=== PATIENT | male | born 1950 | race Caucasian/White ===

== ENCOUNTER 2018-10-12 12:55 | Outpatient (CLI) | payer SELFPAY | END 2018-10-12 12:56 | disposition EMS.NT | LOC: EMS 12:55 | PROVIDERS: ATTEND Surgery | DX: S60.311A Abrasion of right thumb, initial encounter (principal); V43.53XA Car driver injured in collision with pick-up truck in traffic accident, initial encounter; Y92.413 State road as the place of occurrence of the external cause ==

== ENCOUNTER 2019-06-11 08:51 | Outpatient (CLI) | payer MEDICARE | END 2019-06-11 08:52 | disposition critical access hospital (66) | LOC: EMS 08:51 | PROVIDERS: ATTEND Surgery | DX: R53.1 Weakness (principal); R42 Dizziness and giddiness; R11.10 Vomiting, unspecified; R61 Generalized hyperhidrosis | CPT/HCPCS: A0425; A0427 ==

== ENCOUNTER 2019-11-25 13:09 | Emergency (ER) | payer MEDICARE ==
[2019-11-25 13:34] LABS: BILIRUBIN,URINE NEGATIVE (NEGATIVE); GLUCOSE, URINE (UA) NEGATIVE (NEGATIVE); KETONES,URINE (UA) NEGATIVE (NEGATIVE); LEUKOCYTE ESTERASE, URINE NEGATIVE (NEGATIVE); NITRITE,URINE NEGATIVE (NEGATIVE); OCCULT BLOOD,URINE LARGE (NEGATIVE); PH,URINE 6.5 PH (5.0-7.5); PROTEIN,URINE 100 mg/dL (NEGATIVE); UROBILINOGEN,URINE 0.2 (NORMAL) E.U./dL (NORMAL)
[2019-11-25 13:35] LABS: CLARITY,URINE CLOUDY (CLEAR)
[2019-11-25 13:41] LABS: BACTERIA,URINE Few /HPF (None Seen); RBC,URINE TNTC /HPF (0-5); SQUAMOUS EPITHELIAL CELL,UR FEW Squamous (<= Few)
[2019-11-25 14:21] LABS: BASOPHILS % (AUTO) 0.3 %; EOSINOPHILS % (AUTO) 0.3 %; HGB - HEMOGLOBIN 13.6 g/dL (14.0-18.0); LYMPHOCYTES # (AUTO) 1.3 10^3/uL (1.5-3.5); LYMPHOCYTES % (AUTO) 11.6 %; MEAN CORPUSCULAR HEMOGLOBIN 27.1 pg (27.0-31.0); MEAN CORPUSCULAR HGB CONC 31.6 g/dL (32.0-36.0); MEAN CORPUSCULAR VOLUME 85.7 fL (80.0-94.0); MEAN PLATELET VOLUME 11.1 fL (7.4-11.4); MONOCYTES # (AUTO) 0.8 10^3/uL (0.0-1.0); MONOCYTES % (AUTO) 6.9 %; NEUTROPHILS # (AUTO) 9.3 10^3/uL (1.5-6.6); NEUTROPHILS % (AUTO) 80.3 %; PLT - PLATELET COUNT 248 10^3/uL (130-450); RED BLOOD COUNT 5.02 10^6/uL (4.70-6.10); RED CELL DISTRIBUTION WIDTH 14.4 % (12.0-15.0); WHITE BLOOD COUNT 11.6 x10^3/uL (4.8-10.8)
--- NOTE | 2019-11-25 14:39 | ED Physician Documentation ---
History of Present Illness - Stated complaint Stated Complaint: MALE - Chief complaint Chief Complaint: Abd Pain - History obtained from History obtained from: Patient - History of Present Illness Timing: Yesterday Pain level max: 7 Pain level now: 3 - Additonal information Additional information: 69-year-old male presents to the emergency department with left-sided abdominal/flank pain. States he noted blood in his urine as well. No history of kidney stones. He states that he did have blood in the urine a few months ago as well, but seem to resolve on its own. He takes high blood pressure medication. No fevers. No vomiting. No diarrhea. No constipation. Nothing makes it better or worse. Review of Systems Constitutional: denies: Fever, Chills Nose: denies: Rhinorrhea / runny nose, Congestion GI: denies: Vomiting, Diarrhea : reports: Hematuria. denies: Dysuria, Frequency, Hesitancy Skin: denies: Rash Musculoskeletal: denies: Neck pain Neurologic: denies: Headache PD PAST MEDICAL HISTORY - Past Medical History Cardiovascular: Hypertension - Past Surgical History Past Surgical History: Yes Ortho: Other (hand surgery) - Present Medications Home Medications: Ambulatory Orders Medication Instructions Recorded Confirmed Meclizine [Antivert] 25 mg PO Q6H PRN #14 tablet 06/11/19 Ondansetron Odt [Zofran] 4 mg TL Q6H PRN #10 tablet 06/11/19 Cephalexin [Keflex] 500 mg PO Q6H #28 capsule 11/25/19 - Allergies Allergies/Adverse Reactions: Allergies Allergy/AdvReac Type Severity Reaction Status Date / Time No Known Drug Allergies Allergy Verified 11/25/19 13:11 - Social History Does the pt smoke?: Yes Smoking Status: Current every day smoker Does the pt drink ETOH?: Yes Does the pt have substance abuse?: No - Immunizations Immunizations are current?: Yes - POLST Patient has POLST: No PD ED PE NORMAL - Vitals Vital signs reviewed: Yes - General General: Alert and oriented X 3, No acute distress, Well developed/nourished - HEENT HEENT: Moist mucous membranes - Neck Neck: Supple, no meningeal sign - Cardiac Cardiac: RRR, Strong equal pulses - Respiratory Respiratory: No respiratory distress, Clear bilaterally - Abdomen Abdomen: Soft, Non tender, Non distended - Back Back: No CVA TTP, No spinal TTP - Derm Derm: Warm and dry - Extremities Extremities: No edema - Neuro Neuro: Alert and oriented X 3 - Psych Psych: Normal mood, Normal affect Results - Vitals Vitals: Vital Signs - 24 hr 11/25/19 11/25/19 11/25/19 13:11 13:46 16:12 Temperature 36.5 C 36.7 C 36.9 C Heart Rate 122 H 119 H 109 H Respiratory 16 18 20 Rate Blood Pressure 154/105 H 159/112 H 158/111 H O2 Saturation 96 97 98 Oxygen O2 Source Room air - Labs Labs: Laboratory Tests 11/25/19 11/25/19 11/25/19 13:20 14:00 14:00 WBC 11.6 H RBC 5.02 Hgb 13.6 L Hct 43.0 MCV 85.7 MCH 27.1 MCHC 31.6 L RDW 14.4 Plt Count 248 MPV 11.1 Neut # (Auto) 9.3 H Lymph # (Auto) 1.3 L Richardson # (Auto) 0.8 Eos # (Auto) 0.0 Baso # (Auto) 0.0 Absolute Nucleated RBC 0.00 Nucleated RBC % 0.0 Sodium 139 Potassium 3.8 Chloride 107 Carbon Dioxide 22 Anion Gap 10.0 BUN 27 H Creatinine 1.3 H Estimated GFR (MDRD) 55 L Glucose 129 H Calcium 9.2 Total Bilirubin 0.7 AST 18 ALT 11 Alkaline Phosphatase 86 Total Protein 7.6 Albumin 4.2 Globulin 3.4 Albumin/Globulin Ratio 1.2 Lipase 31 Urine Color RED/BLOODY Urine Clarity CLOUDY Urine pH 6.5 Ur Specific [place] 1.020 Urine Protein 100 H Urine Glucose (UA) NEGATIVE Urine Ketones NEGATIVE Urine Occult Blood LARGE H Urine Nitrite NEGATIVE Urine Bilirubin NEGATIVE Urine Urobilinogen 0.2 (NORMAL) Ur Leukocyte Esterase NEGATIVE Urine RBC TNTC H Urine WBC 6-10 H Ur Squamous Epith Cells FEW Squamous Urine Bacteria Few Ur Microscopic Review INDICATED Urine Culture Comments INDICATED - Rads (name of study) CT abdomen pelvis Radiology: Prelim report reviewed, EMP read contemporaneously, See rad report PD MEDICAL DECISION MAKING - ED course Complexity details: reviewed results, re-evaluated patient, considered differential, d/w patient ED course: Patient with hematuria of unclear etiology. Recommend that he have a cystoscopy. He does have some bacteria in his urine, will treat as a UTI. He also appears to have a potential colon mass, recommend a colonoscopy for this. A copy of his CT scan report was given to him for follow-up. No ureteral stone. Patient is well-appearing, nontoxic. Afebrile. Pain well controlled. Patient counseled regarding signs and symptoms for which I believe and urgent re-evaluation would be necessary. Patient with good understanding of and agreement to plan and is comfortable going home at this time This document was made in part using voice recognition software. While efforts are made to proofread this document, sound alike and grammatical errors may occur. Departure - Departure Disposition: Home, Self Care Clinical Impression: Hematuria Qualifiers: Hematuria type: unspecified type Qualified Code(s): R31.9 - Hematuria, unspecified UTI (urinary tract infection) Qualifiers: Urinary tract infection type: acute cystitis Hematuria presence: with hematuria Qualified Code(s): N30.01 - Acute cystitis with hematuria Condition: Good Instructions: ED Hematuria Follow-Up: your,doctor in 1 week [Other] Be Wright DO [Provider Admit Priv/Credential] - Barney Flores MD [Provider Admit Priv/Credential] - Hunter Cunha MD [Provider Admit Priv/Credential] - Prescriptions: Cephalexin [Keflex] 500 mg PO Q6H #28 capsule Comments: Return if you worsen. You should follow-up with a urologist for a cystoscopy to ensure that there are no concerns with your bladder. You also appear to have a possible small mass in your colon, you need a colonoscopy for this. IMPRESSION: 1. There are two indeterminate liver nodules present in the right lobe of the liver. Additionally, there is a suspicious finding in the distal sigmoid colon. Additional workup is recommended including colonoscopy for a more complete evaluation. 2. No bowel obstruction, no perforation. 3. Prominent prostate gland. No hydronephrosis. 4. Diverticular changes in the sigmoid colon. No CT evidence for diverticulitis or abscess formation. 5. Bilateral L5 pars defects with anterolisthesis and moderate to severe bilateral foraminal stenosis at L5-S1. Discharge Date/Time: 11/25/19 16:14
[2019-11-25 14:40] LABS: ALBUMIN 4.2 g/dL (3.2-5.5); ALBUMIN/GLOBULIN RATIO 1.2 (1.0-2.2); BILIRUBIN,TOTAL 0.7 mg/dL (0.2-1.0); CALCIUM 9.2 mg/dL (8.5-10.3); CREATININE 1.3 mg/dL (0.6-1.2); TOTAL PROTEIN 7.6 g/dL (6.7-8.2)
[2019-11-25] MEDS: SODIUM CHLORIDE 0.9% 1,000 ML IV ONE (14:41)
[2019-11-25] MEDS: KETOROLAC 30 MG/ML VIAL IVP STA (14:41)
[2019-11-25] MEDS: IOVERSOL 320 100 ML VIAL IVP ONE (14:59)
[2019-11-25] MEDS ORDERED: IOVERSOL 320 100 ML VIAL IVP ONE (15:02)
--- NOTE | 2019-11-25 15:23 | CT Report ---
Reason: L sided abd pain Procedure Date: 11/25/2019 Accession Number: [id number] / [id number] Procedure: CT - Abdomen/Pelvis W CPT Code: Final Report FULL RESULT: EXAM: CT ABDOMEN AND PELVIS EXAM DATE: 11/25/2019 02:59 PM. CLINICAL HISTORY: Left-sided abdominal pain. COMPARISONS: None. TECHNIQUE: Routine helical CT imaging was performed through the abdomen and pelvis. IV contrast: Optiray 320 100 mL. Enteric contrast: No. Reconstructions: Coronal and sagittal. In accordance with CT protocol optimization, one or more of the following dose reduction techniques were utilized for this exam: automated exposure control, adjustment of mA and/or KV based on patient size, or use of iterative reconstructive technique. FINDINGS: Lung Bases: Some dependent density in both lung bases. Liver: In the right lobe of the liver at the junction of segments VII and VIII, there is an irregular margined nodule measuring 3.1 x 1.7 cm transversely, extending for a cephalocaudal distance of 1.4 cm. Less distinct nodule also seen at the posterior aspect of segment VII measures about 1.4 cm. Series 3 image 20. Benign cyst seen in segment Kelly measuring 1.3 cm. No intrahepatic bile duct distention. Gallbladder/Bile Ducts: Unremarkable. Spleen: Normal. Pancreas: Normal. Adrenal Glands: Normal. Kidneys: Normal. No masses or hydronephrosis. Peritoneal Cavity/Bowel: No free air, no free fluid. In the low sigmoid colon, there is a mass present that does show a small amount of enhancement. This degree of enhancement is atypical for bowel contents. This area of concern is about 3.8 cm in diameter on series 3 image 67. More proximally, a few scattered diverticular changes are present without diverticulitis or abscess formation. The appendix is well visualized and normal. Pelvic Organs: Prostate gland is quite prominent. No hydronephrosis is seen. Vasculature: No aneurysms or other significant abnormality. Bones: Bilateral L5 pars defects are present, 9 mm of anterolisthesis, a broad-based disk bulge and moderate to severe bilateral foraminal narrowing. Other: None. IMPRESSION: 1. There are two indeterminate liver nodules present in the right lobe of the liver. Additionally, there is a suspicious finding in the distal sigmoid colon. Additional workup is recommended including colonoscopy for a more complete evaluation. 2. No bowel obstruction, no perforation. 3. Prominent prostate gland. No hydronephrosis. 4. Diverticular changes in the sigmoid colon. No CT evidence for diverticulitis or abscess formation. 5. Bilateral L5 pars defects with anterolisthesis and moderate to severe bilateral foraminal stenosis at L5-S1. RADIA
[2019-11-25 16:13] VITALS: BP 158/111
== END 2019-11-25 16:14 | disposition home or self-care (01) ==
LOC: ED 13:09
DX: N30.01 Acute cystitis with hematuria (principal); R93.3 Abnormal findings on diagnostic imaging of other parts of digestive tract; K57.30 Diverticulosis of large intestine without perforation or abscess without bleeding; I10 Essential (primary) hypertension; F17.200 Nicotine dependence, unspecified, uncomplicated; Z79.899 Other long term (current) drug therapy
CPT/HCPCS: 36415; 74177; 80053; 81001; 81003; 83690; 85025; 87086; 96361; 96374; 99284

== ENCOUNTER 2019-11-30 11:15 | Emergency (ER) | payer MEDICARE ==
[2019-11-30 11:46] LABS: BASOPHILS # (AUTO) 0.1 10^3/uL (0.0-0.1); BASOPHILS % (AUTO) 0.7 %; EOSINOPHILS # (AUTO) 0.2 10^3/uL (0.0-0.7); EOSINOPHILS % (AUTO) 1.4 %; LYMPHOCYTES # (AUTO) 1.6 10^3/uL (1.5-3.5); LYMPHOCYTES % (AUTO) 13.7 %; MEAN CORPUSCULAR HEMOGLOBIN 27.3 pg (27.0-31.0); MEAN CORPUSCULAR HGB CONC 31.1 g/dL (32.0-36.0); MEAN CORPUSCULAR VOLUME 87.7 fL (80.0-94.0); MEAN PLATELET VOLUME 11.1 fL (7.4-11.4); MONOCYTES # (AUTO) 0.8 10^3/uL (0.0-1.0); MONOCYTES % (AUTO) 6.8 %; NEUTROPHILS # (AUTO) 8.7 10^3/uL (1.5-6.6); NEUTROPHILS % (AUTO) 76.7 %; PLT - PLATELET COUNT 254 10^3/uL (130-450); RED CELL DISTRIBUTION WIDTH 14.7 % (12.0-15.0); WHITE BLOOD COUNT 11.3 x10^3/uL (4.8-10.8)
[2019-11-30 11:59] LABS: ALBUMIN 3.8 g/dL (3.2-5.5); ALBUMIN/GLOBULIN RATIO 1.2 (1.0-2.2); BILIRUBIN,TOTAL 0.6 mg/dL (0.2-1.0); CALCIUM 9.2 mg/dL (8.5-10.3); CREATININE 1.4 mg/dL (0.6-1.2)
--- NOTE | 2019-11-30 12:17 | XRAY Report ---
Reason: shortness of breath Procedure Date: 11/30/2019 Accession Number: [id number] / [id number] Procedure: XR - Chest 2 View X-Ray CPT Code: 35937 Final Report FULL RESULT: EXAM: CHEST RADIOGRAPHY EXAM DATE: 11/30/2019 11:49 AM. CLINICAL HISTORY: Shortness of breath. COMPARISON: ABDOMEN/PELVIS W/ 11/25/2019 2:55 PM. TECHNIQUE: 2 views. FINDINGS: Lungs/Pleura: Increased lung markings. Some William B-lines. Small bibasilar opacities. No effusions. Mediastinum: Stable Other: None. IMPRESSION: 1. Obstructive airways disease. 2. Small bibasilar opacities may represent atelectasis or scarring. 3. Questionable interstitial edema RADIA
--- NOTE | 2019-11-30 14:25 | ED Physician Documentation ---
PD HPI DYSPNEA - Stated complaint Stated Complaint: SOA - Chief complaint Chief Complaint: Resp - History obtained from History obtained from: Patient - History of Present Illness Timing - onset: Other (69-year-old gentleman with mitral valve prolapse was seen a few days ago for an apparent UTI and put on Keflex. That caused his colon to spasm he says, he has been constipated and then started to have bright red blood per rectum with rectal pain consistent with prior episode of a rectal tear. Subsequent to that starting about a day and a half ago he has been having some shortness of breath especially with exertion not associated with chest pain. He does have a mild cough. No pedal edema or calf pain.) Review of Systems Constitutional: denies: Fever, Myalgias, Fatigue Nose: denies: Rhinorrhea / runny nose, Congestion Throat: denies: Sore throat Cardiac: denies: Chest pain / pressure, Palpitations, Pedal edema, Calf pain Respiratory: reports: Dyspnea, Cough. denies: Hemoptysis, Wheezing GI: reports: Constipation, Bloody / black stool. denies: Abdominal Pain, Nausea, Vomiting Musculoskeletal: reports: Back pain (chronic). denies: Neck pain PD PAST MEDICAL HISTORY - Past Medical History Cardiovascular: Hypertension - Past Surgical History Past Surgical History: Yes Ortho: Other (hand surgery) - Present Medications Home Medications: Ambulatory Orders Medication Instructions Recorded Confirmed Meclizine [Antivert] 25 mg PO Q6H PRN #14 tablet 06/11/19 Ondansetron Odt [Zofran] 4 mg TL Q6H PRN #10 tablet 06/11/19 Cephalexin [Keflex] 500 mg PO Q6H #28 capsule 11/25/19 Docusate Sodium 250Mg Capsule 250 mg PO DAILY #30 capsule 11/30/19 [Colace 250Mg Capsule] - Allergies Allergies/Adverse Reactions: Allergies Allergy/AdvReac Type Severity Reaction Status Date / Time No Known Drug Allergies Allergy Verified 11/30/19 16:11 - Social History Does the pt smoke?: Yes Smoking Status: Current every day smoker Does the pt drink ETOH?: Yes Does the pt have substance abuse?: No - Immunizations Immunizations are current?: Yes - POLST Patient has POLST: No PD ED PE NORMAL - Vitals Vital signs reviewed: Yes - General General: Alert and oriented X 3, No acute distress - HEENT HEENT: PERRL, EOMI - Neck Neck: Supple, no meningeal sign, No bony TTP - Cardiac Cardiac: RRR (With frequent extrasystoles; Corresponding to PVCs on the monito r), No murmur - Respiratory Respiratory: No respiratory distress, Other (Rhonchi at both bases, nonlabored) - Abdomen Abdomen: Normal bowel sounds, Soft, Non tender - Rectal Rectal: Other (Multiple nonthrombosed hemorrhoids with sequela of recent active bleeding, no thrombosis or active bleeding.) - Back Back: No CVA TTP, No spinal TTP - Derm Derm: Normal color, Warm and dry - Extremities Extremities: No edema, No calf tenderness / cord Results - Vitals Vitals: Vital Signs - 24 hr 11/30/19 11/30/19 11/30/19 11:19 13:23 15:29 Temperature 36.1 C L 36.6 C Heart Rate 100 94 108 H Respiratory 18 20 18 Rate Blood Pressure 154/96 H 147/101 H 150/103 H O2 Saturation 99 97 98 Oxygen O2 Source Room air - EKG (time done) 1435 Rate: Rate (enter#) (100) Rhythm: Sinus tachycardia Jud: LAD QRS: LVH Ischemia: Non specific changes Computer interpretation: Agree with computer - Labs Labs: Laboratory Tests 11/30/19 11/30/19 11/30/19 11:43 11:43 11:43 WBC 11.3 H RBC 4.40 L Hgb 12.0 L Hct 38.6 L MCV 87.7 MCH 27.3 MCHC 31.1 L RDW 14.7 Plt Count 254 MPV 11.1 Neut # (Auto) 8.7 H Lymph # (Auto) 1.6 [place] # (Auto) 0.8 Eos # (Auto) 0.2 Baso # (Auto) 0.1 Absolute Nucleated RBC 0.00 Nucleated RBC % 0.0 Sodium 143 Potassium 4.2 Chloride 112 H Carbon Dioxide 23 Anion Gap 8.0 BUN 35 H Creatinine 1.4 H Estimated GFR (MDRD) 50 L Glucose 113 H Calcium 9.2 Total Bilirubin 0.6 AST 28 ALT 41 Alkaline Phosphatase 79 Troponin I High Sens 384.9 H* B-Natriuretic Peptide Total Protein 7.0 Albumin 3.8 Globulin 3.2 Albumin/Globulin Ratio 1.2 Lipase 31 Urine Color Urine Clarity Urine pH Ur Specific [place] Urine Protein Urine Glucose (UA) Urine Ketones Urine Occult Blood Urine Nitrite Urine Bilirubin Urine Urobilinogen Ur Leukocyte Esterase Urine RBC Urine WBC Ur Squamous Epith Cells Urine Bacteria Ur Microscopic Review Urine Culture Comments 11/30/19 11/30/19 11:43 14:34 WBC RBC Hgb Hct MCV MCH MCHC RDW Plt Count MPV Neut # (Auto) Lymph # (Auto) [place] # (Auto) Eos # (Auto) Baso # (Auto) Absolute Nucleated RBC Nucleated RBC % Sodium Potassium Chloride Carbon Dioxide Anion Gap BUN Creatinine Estimated GFR (MDRD) Glucose Calcium Total Bilirubin AST ALT Alkaline Phosphatase Troponin I High Sens B-Natriuretic Peptide 936 H Total Protein Albumin Globulin Albumin/Globulin Ratio Lipase Urine Color YELLOW Urine Clarity CLEAR Urine pH 6.0 Ur Specific [place] 1.025 Urine Protein NEGATIVE Urine Glucose (UA) NEGATIVE Urine Ketones NEGATIVE Urine Occult Blood MODERATE H Urine Nitrite NEGATIVE Urine Bilirubin NEGATIVE Urine Urobilinogen 0.2 (NORMAL) Ur Leukocyte Esterase TRACE H Urine RBC 11-25 H Urine WBC 6-10 H Ur Squamous Epith Cells NONE SEEN Urine Bacteria Few Ur Microscopic Review INDICATED Urine Culture Comments INDICATED - Rads (name of study) 2v chest Radiology: EMP read contemporaneously (Struct of airways disease, small bibasilar opacities that may represent atelectasis or scarring, questionable interstitial infiltrate.) PD MEDICAL DECISION MAKING - ED course ED course: 69-year-old gentleman presents with shortness of breath, hemorrhoidal bleeding, constipation. He has persistent evidence of UTI and I recommended continuation of the antibiotics after review of the culture showing mixed yani. His blood work was otherwise unremarkable but given his symptoms and the borderline chest x-ray I added on a BNP and a troponin which the patient was unable to wait around for and he signed out AGAINST MEDICAL ADVICE after discussion of the risks and potential still on ruled out diagnoses which included myocardial infarction and congestive heart failure. I called him back shortly after he signed out AMA with the positive troponin result and he says he will come back. Departure - Departure Disposition: 07 Against Medical Advice Clinical Impression: Hemorrhoids, internal, with bleeding UTI (urinary tract infection) Qualifiers: Urinary tract infection type: acute cystitis Hematuria presence: without hematuria Qualified Code(s): N30.00 - Acute cystitis without hematuria Condition: Good Record reviewed to determine appropriate education?: Yes Instructions: ED Hematochezia Stable Prescriptions: Docusate Sodium 250Mg Capsule [Colace 250Mg Capsule] 250 mg PO DAILY #30 capsule Discharge Date/Time: 11/30/19 15:38
[2019-11-30 14:41] LABS: BILIRUBIN,URINE NEGATIVE (NEGATIVE); GLUCOSE, URINE (UA) NEGATIVE (NEGATIVE); KETONES,URINE (UA) NEGATIVE (NEGATIVE); LEUKOCYTE ESTERASE, URINE TRACE (NEGATIVE); NITRITE,URINE NEGATIVE (NEGATIVE); OCCULT BLOOD,URINE MODERATE (NEGATIVE); PROTEIN,URINE NEGATIVE (NEGATIVE); UROBILINOGEN,URINE 0.2 (NORMAL) E.U./dL (NORMAL)
[2019-11-30 14:44] LABS: CLARITY,URINE CLEAR (CLEAR)
[2019-11-30 14:56] LABS: BACTERIA,URINE Few /HPF (None Seen); SQUAMOUS EPITHELIAL CELL,UR NONE SEEN (<= Few)
[2019-11-30 15:30] VITALS: BP 150/103
== END 2019-11-30 15:38 | disposition left against medical advice (07) ==
LOC: ED 11:15
DX: K64.8 Other hemorrhoids (principal); N30.00 Acute cystitis without hematuria; R74.8 Abnormal levels of other serum enzymes; I49.3 Ventricular premature depolarization; I34.1 Nonrheumatic mitral (valve) prolapse; I10 Essential (primary) hypertension; F17.200 Nicotine dependence, unspecified, uncomplicated; Z53.20 Procedure and treatment not carried out because of patient's decision for unspecified reasons
CPT/HCPCS: 36415; 71046; 80053; 81001; 81003; 83690; 83880; 84484; 85025; 87086; 93005; 99284

== ENCOUNTER 2019-11-30 15:56 | Emergency (ER) | payer MEDICARE ==
[~2019-11-30 15:56] MED LIST: ASPIRIN CHEW 81 MG TABLET PO STA
[2019-11-30] MEDS ORDERED: METOPROLOL TARTRATE 50 MG TABLET PO STA (16:10)
[2019-11-30] MEDS ORDERED: METOPROLOL 5 MG/5 ML VIAL IVP STA (16:10)
[2019-11-30] MEDS ORDERED: HEPARIN 25000UNITS/500ML (D5W) 25,000 UNIT/500 ML BAG IV STA (16:10)
--- NOTE | 2019-11-30 16:13 | ED Physician Documentation ---
PD HPI DYSPNEA - Stated complaint Stated Complaint: DIZZY - Chief complaint Chief Complaint: Cardiac - History obtained from History obtained from: Patient - History of Present Illness Timing - onset: Other (69-year-old gentleman who I had seen earlier in the day and he signed out AMA before troponin and BNP were resulted. I did call them back because the troponin was over 300 and he came back. Again he has had exertional dyspnea for a few weeks. Recent diagnosis of UTI on Keflex with mixed yani in the culture. He also had bleeding hemorrhoids. He has not had any chest pain, just this exertional dyspnea and dizziness which were his main complaints.) Review of Systems Ten Systems: 10 systems reviewed and negative Constitutional: denies: Fever, Chills Ears: denies: Loss of hearing, Ear pain Nose: denies: Rhinorrhea / runny nose, Congestion Cardiac: denies: Chest pain / pressure, Palpitations, Pedal edema, Calf pain PD PAST MEDICAL HISTORY - Past Medical History Cardiovascular: Hypertension - Past Surgical History Past Surgical History: Yes Ortho: Other (hand surgery) - Present Medications Home Medications: Ambulatory Orders Medication Instructions Recorded Confirmed Meclizine [Antivert] 25 mg PO Q6H PRN #14 tablet 06/11/19 Ondansetron Odt [Zofran] 4 mg TL Q6H PRN #10 tablet 06/11/19 Cephalexin [Keflex] 500 mg PO Q6H #28 capsule 11/25/19 Docusate Sodium 250Mg Capsule 250 mg PO DAILY #30 capsule 11/30/19 [Colace 250Mg Capsule] - Allergies Allergies/Adverse Reactions: Allergies Allergy/AdvReac Type Severity Reaction Status Date / Time No Known Drug Allergies Allergy Verified 11/30/19 16:11 - Social History Does the pt smoke?: Yes Smoking Status: Current every day smoker Does the pt drink ETOH?: Yes Does the pt have substance abuse?: No - Family History Family history: reports: Non contributory - Immunizations Immunizations are current?: Yes - POLST Patient has POLST: No PD ED PE NORMAL - Vitals Vital signs reviewed: Yes - General General: Alert and oriented X 3, No acute distress - HEENT HEENT: PERRL, EOMI - Neck Neck: No bony TTP - Cardiac Cardiac: RRR, No murmur - Respiratory Respiratory: No respiratory distress, Other (rales both bases) - Abdomen Abdomen: Soft, Non tender - Back Back: No CVA TTP, No spinal TTP - Derm Derm: Normal color, Warm and dry - Extremities Extremities: No edema, No calf tenderness / cord - Neuro Neuro: Alert and oriented X 3, Normal speech Results - Vitals Vitals: Vital Signs - 24 hr 11/30/19 11/30/19 11/30/19 16:05 16:40 17:00 Temperature 36.5 C Heart Rate 110 H 106 H 86 Respiratory 19 25 H 11 L Rate Blood Pressure 147/103 H 143/70 H 145/89 H O2 Saturation 96 97 97 11/30/19 11/30/19 17:30 18:00 Temperature Heart Rate 82 87 Respiratory 20 29 H Rate Blood Pressure 134/95 H 117/85 H O2 Saturation 96 96 Oxygen O2 Source Room air - EKG (time done) 1607 Rate: Rate (enter#) (109) Rhythm: Sinus tachycardia, LAE [place]: LAD Intervals: Other (IVCD) QRS: LVH Ischemia: Non specific changes. No: ST elevation c/w ischemia, ST depression Computer interpretation: Agree with computer - Labs Labs: Laboratory Tests 11/30/19 11/30/19 11/30/19 16:15 16:15 16:15 WBC 11.8 H RBC 4.62 L Hgb 12.3 L Hct 39.9 L MCV 86.4 MCH 26.6 L MCHC 30.8 L RDW 14.7 Plt Count 268 MPV 10.7 Neut # (Auto) 9.3 H Lymph # (Auto) 1.6 [place] # (Auto) 0.7 Eos # (Auto) 0.1 Baso # (Auto) 0.1 Absolute Nucleated RBC 0.00 Nucleated RBC % 0.0 Sodium 142 Potassium 3.9 Chloride 109 Carbon Dioxide 21 Anion Gap 12.0 BUN 33 H Creatinine 1.4 H Estimated GFR (MDRD) 50 L Glucose 111 H Calcium 9.0 Troponin I High Sens 363.3 H* PD MEDICAL DECISION MAKING - ED course ED course: 69-year-old gentleman returns at my behest after he had left AMA and subsequently his troponin came back pretty elevated. His EKG has not changed. He still has no chest pain. I discussed the case with the shower enclosure installer here, Dr. Vega, given the lack of interventional capability here she recommended transfer to a higher level of care and he was accepted by Dr. Hamilton to [facility] at 4:45 PM. [place] were completed. He is stable for transport to a higher level of care for inpatient cardiology evaluation. - Critical Care Time(min): 40 Time Includes: Direct patient care, Review records, Reassess patient, Document care, Coordinate care, Medical consult Data interpretation: Labs, Pulse ox Procedures excluded from critical care time: EKG Departure - Departure Disposition: 02 Transfer Acute Care Hosp Clinical Impression: Non-STEMI (non-ST elevated myocardial infarction) Condition: Serious Discharge Date/Time: 11/30/19 18:25
[2019-11-30 16:20] LABS: BASOPHILS # (AUTO) 0.1 10^3/uL (0.0-0.1); BASOPHILS % (AUTO) 0.6 %; EOSINOPHILS # (AUTO) 0.1 10^3/uL (0.0-0.7); EOSINOPHILS % (AUTO) 0.7 %; HGB - HEMOGLOBIN 12.3 g/dL (14.0-18.0); LYMPHOCYTES # (AUTO) 1.6 10^3/uL (1.5-3.5); LYMPHOCYTES % (AUTO) 13.4 %; MEAN CORPUSCULAR HEMOGLOBIN 26.6 pg (27.0-31.0); MEAN CORPUSCULAR HGB CONC 30.8 g/dL (32.0-36.0); MEAN CORPUSCULAR VOLUME 86.4 fL (80.0-94.0); MEAN PLATELET VOLUME 10.7 fL (7.4-11.4); MONOCYTES # (AUTO) 0.7 10^3/uL (0.0-1.0); MONOCYTES % (AUTO) 5.6 %; NEUTROPHILS # (AUTO) 9.3 10^3/uL (1.5-6.6); NEUTROPHILS % (AUTO) 79.1 %; PLT - PLATELET COUNT 268 10^3/uL (130-450); RED BLOOD COUNT 4.62 10^6/uL (4.70-6.10); RED CELL DISTRIBUTION WIDTH 14.7 % (12.0-15.0); WHITE BLOOD COUNT 11.8 x10^3/uL (4.8-10.8)
[2019-11-30 16:30] LABS: CREATININE 1.4 mg/dL (0.6-1.2)
[2019-11-30] MEDS ORDERED: FUROSEMIDE 40 MG/4 ML VIAL IVP STA (17:29)
[2019-11-30] MEDS ORDERED: NITROGLYCERIN 2% PASTE TOP STA (17:29)
[2019-11-30 18:07] VITALS: BP 117/85
== END 2019-11-30 18:25 | disposition short-term general hospital (02) ==
LOC: ED 15:56
DX: I21.4 Non-ST elevation (NSTEMI) myocardial infarction (principal); I10 Essential (primary) hypertension; F17.200 Nicotine dependence, unspecified, uncomplicated; K64.8 Other hemorrhoids; N30.00 Acute cystitis without hematuria; I49.3 Ventricular premature depolarization; I34.1 Nonrheumatic mitral (valve) prolapse
CPT/HCPCS: 36415; 71046; 80048; 80053; 81001; 83690; 83880; 84484; 85025; 87086; 93005; 96374; 96375; 99284; 99285; 99291; A9270

== ENCOUNTER 2019-11-30 18:27 | Outpatient (CLI) | payer MEDICARE | END 2019-11-30 23:59 | disposition short-term general hospital (02) | LOC: EMS 18:27 | PROVIDERS: ATTEND Surgery | DX: I21.4 Non-ST elevation (NSTEMI) myocardial infarction (principal) | CPT/HCPCS: A0425; A0426 ==

== ENCOUNTER 2020-12-01 12:36 | Outpatient (CLI) | payer MEDICARE ==
[2020-12-01] MEDS ORDERED: IOVERSOL 320 50 ML VIAL PO ONE (14:40)
[2020-12-01] MEDS ORDERED: IOVERSOL 320 100 ML VIAL IVP ONE (14:40)
--- NOTE | 2020-12-01 15:37 | CT Report ---
PROCEDURE: Abdomen/Pelvis W INDICATIONS: HEMATURIA CONTRAST: IV CONTRAST: Optiray 320 ml: 100 PO CONTRAST: Optiray 320 ml50 TECHNIQUE: After the administration of oral and IV contrast, 5 mm thick sections acquired from the diaphragms to the symphysis. 5 mm thick coronal and sagittal reformats were acquired. For radiation dose reducti on, the following was used: automated exposure control, adjustment of mA and/or kV according to tommy ent size. COMPARISON: CT abdomen pelvis 11/25/2019 FINDINGS: Image quality: Excellent. ABDOMEN: Lung bases: Lung bases are clear. Heart size is normal. Solid organs: Liver and spleen are normal in size and enhancement. Hepatic cysts are unchanged. Gall bladder is unremarkable. Biliary system is non dilated. Pancreas enhances normally. No adrenal nodu les. Left asymmetric renal atrophy is present. Previous left hydronephrosis has resolved. Peritoneum and bowel: Bowel loops demonstrate normal wall thickness and caliber. No free fluid or a ir. Previous sigmoid mass is no longer visualized. Minimal diverticula are noted. Nodes and vessels: No retroperitoneal or mesenteric adenopathy by size criteria. Aorta and inferior vena cava are normal in size. Miscellaneous: No ventral hernias. PELVIS: Genitourinary: Bladder wall demonstrates diffuse thickening there is incomplete distention. The pros seaman gland is markedly enlarged. There is soft tissue density within the posterior inferior aspect of the bladder which appears to be at least partially contiguous with the enlarged prostate gland. This was present on prior exam. Miscellaneous: No inguinal hernias or adenopathy. Bones: No suspicious bony lesions. No vertebral body compression fractures. IMPRESSION: 1. Diffuse bladder wall thickening, possibly secondary to incomplete distention. However, if concern persists for hematuria or cystitis, further evaluation is recommended. 2. Markedly enlarged prostate gland with soft tissue extension towards the inferior inferior bladder felt to be likely prostate tissue, unchanged. Reviewed by: Joanne Wade MD on 12/01/2020 3:36 PM PST Approved by: Joanne Wade MD on 12/01/2020 3:36 PM PST Station ID: [id number]
== END 2020-12-01 12:37 | disposition home or self-care (01) ==
LOC: LAB 12:36
PROVIDERS: ATTEND Physician Assistant
DX: R31.9 Hematuria, unspecified (principal); N40.0 Benign prostatic hyperplasia without lower urinary tract symptoms
CPT/HCPCS: 74177; Q9967

== ENCOUNTER 2021-01-16 14:07 | Outpatient (CLI) | payer MEDICARE ==
[2021-01-16 14:55] LABS: BASOPHILS # (AUTO) 0.1 10^3/uL (0.0-0.1); BASOPHILS % (AUTO) 0.6 %; EOSINOPHILS # (AUTO) 0.1 10^3/uL (0.0-0.7); EOSINOPHILS % (AUTO) 1.2 %; HCT - HEMATOCRIT 47.4 % (42.0-52.0); HGB - HEMOGLOBIN 15.5 g/dL (14.0-18.0); LYMPHOCYTES % (AUTO) 21.1 %; MEAN CORPUSCULAR HEMOGLOBIN 28.3 pg (27.0-31.0); MEAN CORPUSCULAR HGB CONC 32.7 g/dL (32.0-36.0); MEAN CORPUSCULAR VOLUME 86.5 fL (80.0-94.0); MEAN PLATELET VOLUME 10.6 fL (7.4-11.4); MONOCYTES # (AUTO) 0.7 10^3/uL (0.0-1.0); MONOCYTES % (AUTO) 7.3 %; NEUTROPHILS # (AUTO) 6.4 10^3/uL (1.5-6.6); NEUTROPHILS % (AUTO) 69.2 %; PLT - PLATELET COUNT 212 10^3/uL (130-450); RED BLOOD COUNT 5.48 10^6/uL (4.70-6.10); RED CELL DISTRIBUTION WIDTH 14.6 % (12.0-15.0); WHITE BLOOD COUNT 9.3 x10^3/uL (4.8-10.8)
[2021-01-16 15:07] LABS: ALKALINE PHOSPHATASE 89 IU/L (42-121); ALT ALANINE AMINOTRANSFERASE 15 IU/L (10-60); AST ASPARTATE AMINOTRANSFERASE 16 IU/L (10-42); BILIRUBIN,TOTAL 0.8 mg/dL (0.2-1.0); BUN - BLOOD UREA NITROGEN 27 mg/dL (6-20); CARBON DIOXIDE - CO2 22 mmol/L (21-32); CHLORIDE 107 mmol/L (101-111); CHOL/HDL RATIO 7.4 (<5.0); CHOLESTEROL 258 mg/dL; CREATININE 1.1 mg/dL (0.6-1.2); GAMMA GLUTAMYL TRANSPEPTIDASE 14 IU/L (8-55); GFR - MDRD 66 (>89); GLUCOSE 105 mg/dL (70-100); HDL CHOLESTEROL 35 mg/dL; LDL CHOLESTEROL,CALCULATED 185 mg/dL; LDL/HDL RATIO 5.3 (<3.6); MAGNESIUM 1.9 mg/dL (1.7-2.8); POTASSIUM 4.3 mmol/L (3.5-5.0); SODIUM 139 mmol/L (135-145); TOTAL PROTEIN 7.9 g/dL (6.7-8.2); TRIGLYCERIDES 190 mg/dL; VLDL CHOLESTEROL 38 mg/dL
[2021-01-16 15:20] LABS: THYROID STIMULATING HORMONE 0.68 uIU/mL (0.34-5.60)
[2021-01-16 15:22] LABS: FREE T4 (FREE THYROXINE) 1.03 ng/dL (0.58-1.64)
[2021-01-16 15:23] LABS: FREE T3 3.2 pg/mL (2.5-3.9)
[2021-01-16 15:31] LABS: FOLATE 9.88 ng/mL (5.90 - >24.8)
[2021-01-16 15:51] LABS: CEA - CARCINOEMBRYONIC ANTIGEN 2.9 ng/mL
[2021-01-16 20:12] LABS: ESTIMATED AVERAGE GLUCOSE 114 mg/dL (70-100); HEMOGLOBIN A1c% 5.6 % (4.27-6.07)
[2021-01-21 13:23] LABS: BILIRUBIN,URINE NEGATIVE (NEGATIVE); GLUCOSE, URINE (UA) NEGATIVE (NEGATIVE); KETONES,URINE (UA) NEGATIVE (NEGATIVE); LEUKOCYTE ESTERASE, URINE NEGATIVE (NEGATIVE); NITRITE,URINE NEGATIVE (NEGATIVE); OCCULT BLOOD,URINE LARGE (NEGATIVE); PROTEIN,URINE TRACE mg/dL (NEGATIVE); UROBILINOGEN,URINE 0.2 (NORMAL) E.U./dL (NORMAL)
[2021-01-21 13:24] LABS: CLARITY,URINE CLEAR (CLEAR)
[2021-01-21 13:45] LABS: BACTERIA,URINE Rare /HPF (None Seen); SQUAMOUS EPITHELIAL CELL,UR NONE SEEN (<= Few); WBC,URINE 0-3 /HPF (0-3)
== END 2021-01-16 14:08 | disposition home or self-care (01) ==
LOC: LAB 14:07
PROVIDERS: ATTEND General Practice
DX: I70.90 Unspecified atherosclerosis (principal); E88.81 Metabolic syndrome and other insulin resistance; N40.0 Benign prostatic hyperplasia without lower urinary tract symptoms; D50.9 Iron deficiency anemia, unspecified; E29.1 Testicular hypofunction; K76.9 Liver disease, unspecified; E78.00 Pure hypercholesterolemia, unspecified
CPT/HCPCS: 36415; 80053; 80061; 81001; 81003; 82306; 82378; 82607; 82670; 82746; 82977; 83036; 83721; 83735; 83880; 84153; 84403; 84439; 84443; 84480; 84481; 85025

== ENCOUNTER 2021-11-27 15:47 | Outpatient (CLI) | payer MEDICARE ==
[2021-11-27] MEDS ORDERED: iohexoL-300 100 ML VIAL ONE (16:18)
[2021-11-27] MEDS ORDERED: iohexoL-300 100 ML VIAL IVP ONE (20:25)
--- NOTE | 2021-11-28 15:13 | CT Report ---
PROCEDURE: IVP INDICATIONS: GROSS HEMATURIA CONTRAST: IV CONTRAST: Isovue 300 ml: 140 PO CONTRAST: *NO PO CONTRAST TECHNIQUE: After the administration of oral and intravenous contrast, 5 mm thick sections acquired from the diap hragms to the symphysis. 5 mm thick coronal and sagittal reformats were acquired. For radiation dos e reduction, the following was used: automated exposure control, adjustment of mA and/or kV accordin g to patient size. COMPARISON: CT abdomen and pelvis with contrast, 12/01/2020 and 11/25/2019. FINDINGS: Image quality: Excellent. Lung bases: There is a 5 mm groundglass nodule in the right middle lobe. Bilateral subpleural scars a nd atelectasis at lung bases. Heart size is normal. Moderate coronary artery calcification. Urinary system: There is rhnq-ds-xpnigfmc left renal atrophy with left renal cortical thinning. There is xkcbmksw-pc-ultbdu left hydronephrosis and hydroureter with left ureter dilated to the level of r ight UVJ. Mild left perinephric stranding and left periureteral stranding. Right kidney is normal in size and enhancement. Contrast-filled right renal calyces are normal in mo rphology. Contrast filled portions of right ureter are normal in caliber. Bladder wall is thickened along the left lateral bladder wall and left bladder base. Markedly enlarge d prostate. Solid organs: Liver is normal in size. Mild hepatic steatosis. There are several indeterminate hypod ense nodules in liver, most likely hepatic cysts. Gallbladder normal. Biliary system is non dilated. Pancreas enhances normally. The spleen is sandhya l in size. No adrenal nodules. Peritoneum and bowel: Bowel loops demonstrate normal wall thickness and caliber. Mild diverticulosis without diverticulitis. No free fluid or air. Nodes and vessels: No retroperitoneal or mesenteric adenopathy by size criteria. Aorta and inferior vena cava are normal in size. Abdominal wall: No ventral hernias. Pelvis: No pathologic free pelvic fluid. No inguinal hernias or adenopathy. Bones: Grade 1 anterolisthesis of L5 on S1 secondary to bilateral pars defects. Degenerative disc an d facet disease in lumbar spine. No suspicious bony lesions. No vertebral body compression fractures . IMPRESSION: 1. There is kuuryxxu-qx-agjuve left hydronephrosis and hydroureter with obstruction at the left UVJ. There is bladder wall thickening along the left posterior lateral bladder wall. Cannot rule out uroep ithelial neoplasm. Wpep-pz-dbixmvqh left renal atrophy is present. Recommend urology consultation and cystoscopy for follow-up evaluation. 2. Prostate is enlarged extruding into the urinary bladder, which may contribute to left UVJ obstruct ion and possible bladder outlet obstruction. 3. Mild diverticulosis without diverticulitis. 4. Several indeterminate hepatic hypodensities, most likely hepatic cysts. Reviewed by: Tadeo Vee MD on 11/28/2021 3:12 PM PST Approved by: Tadeo Vee MD on 11/28/2021 3:12 PM PST Station ID: [id number]
== END 2021-11-27 15:48 | disposition home or self-care (01) ==
LOC: DI 15:47
PROVIDERS: ATTEND Physician Assistant Medical
DX: R31.0 Gross hematuria (principal); N13.2 Hydronephrosis with renal and ureteral calculous obstruction; N26.1 Atrophy of kidney (terminal); N40.0 Benign prostatic hyperplasia without lower urinary tract symptoms; K57.90 Diverticulosis of intestine, part unspecified, without perforation or abscess without bleeding; R93.2 Abnormal findings on diagnostic imaging of liver and biliary tract
CPT/HCPCS: 74178; Q9967

== ENCOUNTER 2021-12-09 12:44 | Emergency (ER) | payer MEDICARE ==
[2021-12-09 12:53] VITALS: BP 157/99
--- NOTE | 2021-12-09 13:09 | ED Physician Documentation ---
History of Present Illness - Stated complaint Stated Complaint: BLOOD & CLOTS IN URINE - Chief complaint Chief Complaint: Abd Pain - History obtained from History obtained from: Patient - History of Present Illness Timing: How many weeks ago (several) Pain level max: 6 Pain level now: 5 - Additonal information Additional information: 71-year-old male presents to the emergency department complaining of left flank pain. He states that he has had hematuria and urinating blood clots as well. He states that he had a CT scan 2 weeks ago ordered by his urologist and it showed a growth near the left ureter causing the hydronephrosis. He has a cystoscopy scheduled for December 24. He is here requesting pain medication. Review of Systems Constitutional: denies: Fever, Chills Throat: denies: Sore throat Cardiac: denies: Chest pain / pressure, Palpitations Respiratory: denies: Cough GI: denies: Vomiting, Diarrhea : reports: Hematuria. denies: Incontinent Skin: denies: Rash Musculoskeletal: denies: Neck pain, Back pain PD PAST MEDICAL HISTORY - Past Medical History Cardiovascular: Hypertension - Past Surgical History Past Surgical History: Yes Ortho: Other (hand surgery) - Present Medications Home Medications: Ambulatory Orders Medication Instructions Recorded Confirmed Meclizine [Antivert] 25 mg PO Q6H PRN #14 tablet 06/11/19 Ondansetron Odt [Zofran] 4 mg TL Q6H PRN #10 tablet 06/11/19 cephALEXin [Keflex] 500 mg PO Q6H #28 capsule 11/25/19 Docusate Sodium 250Mg Capsule 250 mg PO DAILY #30 capsule 11/30/19 [Colace 250Mg Capsule] HYDROcod/ACETAM 5/325 [Magnolia 5/325] 1 - 2 ea PO Q6H PRN #14 tablet 12/09/21 - Allergies Allergies/Adverse Reactions: Allergies Allergy/AdvReac Type Severity Reaction Status Date / Time No Known Drug Allergies Allergy Verified 12/09/21 12:49 - Social History Does the pt smoke?: Yes Smoking Status: Current every day smoker Does the pt drink ETOH?: Yes Does the pt have substance abuse?: No - Immunizations Immunizations are current?: Yes - POLST Patient has POLST: No PD ED PE NORMAL - Vitals Vital signs reviewed: Yes - General General: Alert and oriented X 3, No acute distress - HEENT HEENT: Moist mucous membranes - Respiratory Respiratory: No respiratory distress - Derm Derm: Warm and dry - Neuro Neuro: Alert and oriented X 3 - Psych Psych: Normal mood, Normal affect Results - Vitals Vitals: Vital Signs - 24 hr 12/09/21 12:50 Temperature 36.5 C Heart Rate 100 Respiratory 16 Rate Blood Pressure 157/99 H O2 Saturation 97 Oxygen O2 Source Room air PD MEDICAL DECISION MAKING - ED course Complexity details: reviewed results, re-evaluated patient, considered differential, d/w patient ED course: Patient with a known bladder mass that is awaiting cystoscopy. This is causing hydronephrosis and likely the hematuria. This is an ongoing issue for the patient. We will prescribe him pain medication for home. I did contact [facility] and they are unable to move his appointment up any sooner. I will give him the name of an alternative urologist as well if you would like to see if they can see him any sooner. Until that time, he can utilize the pain medication to help with the left flank pain that he is having from the hydronephrosis. I am prescribing a short course of short-acting opioid pain medication for this patient. I have reviewed the patients [facility] and no concerning findings were noted. I have discussed that the opioids are for short term therapy only, and will not be refilled from the ED. patient counseled regarding signs and symptoms for which I believe and urgent re-evaluation would be necessary. Patient with good understanding of and agreement to plan and is comfortable going home at this time This document was made in part using voice recognition software. While efforts are made to proofread this document, sound alike and grammatical errors may occur. Departure - Departure Disposition: Home, Self Care Clinical Impression: Bladder tumor Hematuria Qualifiers: Hematuria type: gross Qualified Code(s): R31.0 - Gross hematuria Hydronephrosis Qualifiers: Hydronephrosis type: unspecified Qualified Code(s): N13.30 - Unspecified hydronephrosis Condition: Good Instructions: ED Hematuria Follow-Up: [facility] [Provider Group] Himanshu Mcrae MD [Physician No Access] - Prescriptions: HYDROcod/ACETAM 5/325 [Magnolia 5/325] 1 - 2 ea PO Q6H PRN #14 tablet PRN Reason: Pain Comments: I did confirm with [facility] that they are unable to see you until December 24. They have no openings at this time. Dr. Mcrae is another urologist that you can contact to see if he can see you sooner. Your prescriptions were sent to [facility] in [place]. I am prescribing a short course of narcotic pain medication for you. These are potentially dangerous and addictive medications that should be used carefully. These medications may constipate you. Take an grhx-ade-imkfaor stool softener (docusate) twice daily with plenty of water while taking these medications. If you go 24 hours without a bowel movement, take wxrv-ztp-hkdjfnh miralax, per package instructions. Do not drink or drive while taking these medications. If you received narcotic or sedating medications while in the emergency department, do not drive for 24 hours. Store this medication in a safe, secure place and out of reach of children. It is a violation of federal law to give or sell this medication to another person or to use in a manner other than prescribed. The ED will not refill narcotic prescriptions, including prescriptions lost or stolen. To dispose of unwanted medications: 1. [facility] [address] in [place] has a medication drop box. They accept prescription medications (in pill form) Thursday through Thursday 9:00 a.m. to 5:00 p.m. 2. [facility] accepts prescription medications (in pill form only) for disposal year round. Call for more information. 3. Contact the [facility] for the next [facility] sponsored prescription drug collection event. , [phone], or [phone];
== END 2021-12-09 13:26 | disposition home or self-care (01) ==
LOC: ED 12:44
DX: D49.4 Neoplasm of unspecified behavior of bladder (principal); F17.200 Nicotine dependence, unspecified, uncomplicated
CPT/HCPCS: 99282; 99283

== ENCOUNTER 2022-01-14 11:07 | Emergency (ER) | payer MEDICARE ==
[2022-01-14 11:43] LABS: BASOPHILS # (AUTO) 0.1 10^3/uL (0.0-0.1); BASOPHILS % (AUTO) 0.4 %; EOSINOPHILS # (AUTO) 0.1 10^3/uL (0.0-0.7); EOSINOPHILS % (AUTO) 0.7 %; HCT - HEMATOCRIT 45.3 % (42.0-52.0); HGB - HEMOGLOBIN 15.4 g/dL (14.0-18.0); LYMPHOCYTES # (AUTO) 1.5 10^3/uL (1.5-3.5); LYMPHOCYTES % (AUTO) 8.1 %; MEAN CORPUSCULAR HEMOGLOBIN 30.4 pg (27.0-31.0); MEAN CORPUSCULAR VOLUME 89.5 fL (80.0-94.0); MEAN PLATELET VOLUME 9.9 fL (7.4-11.4); MONOCYTES # (AUTO) 1.4 10^3/uL (0.0-1.0); MONOCYTES % (AUTO) 7.6 %; NEUTROPHILS # (AUTO) 15.3 10^3/uL (1.5-6.6); NEUTROPHILS % (AUTO) 82.4 %; PLT - PLATELET COUNT 221 10^3/uL (130-450); RED BLOOD COUNT 5.06 10^6/uL (4.70-6.10); RED CELL DISTRIBUTION WIDTH 12.4 % (12.0-15.0); WHITE BLOOD COUNT 18.6 x10^3/uL (4.8-10.8)
[2022-01-14 11:56] LABS: ALBUMIN/GLOBULIN RATIO 1.1 (1.0-2.2); CALCIUM 8.7 mg/dL (8.5-10.3); CREATININE 1.9 mg/dL (0.6-1.2); POTASSIUM 4.1 mmol/L (3.5-5.0); TOTAL PROTEIN 7.5 g/dL (6.7-8.2)
--- NOTE | 2022-01-14 12:01 | ED Physician Documentation ---
PD HPI ABD PAIN - Stated complaint Stated Complaint: BACK PX - Chief complaint Chief Complaint: Abd Pain - Additional information Additional information: Patient is a 71-year-old male presenting to the emergency department with report of left-sided low back pain, bloody output from a left-sided nephrectomy tube as well as blood and clots in urination x2 days. Recently underwent nephrectomy tube placement for known left-sided bladder mass at [facility]. Was performed 01/01/2022. Reports was having bloody output which had resolved however resumed 2 days ago. Also reports difficulty with micturition and passage of blood and clots. States increasing pain but denies nausea or vomiting. Endorses for some constipation but denies diarrhea. Review of Systems Unable to obtain: Unresponsive Ten Systems: 10 systems reviewed and negative Constitutional: denies: Fever, Chills, Fatigue Eyes: denies: Loss of vision Ears: denies: Loss of hearing Nose: denies: Rhinorrhea / runny nose Throat: denies: Dental pain / toothache Cardiac: denies: Chest pain / pressure Respiratory: denies: Dyspnea GI: reports: Abdominal Pain, Constipation : reports: Unable to Void, Hematuria PD PAST MEDICAL HISTORY - Past Medical History Cardiovascular: Hypertension - Past Surgical History Past Surgical History: Yes Ortho: Other (hand surgery) - Present Medications Home Medications: Ambulatory Orders Medication Instructions Recorded Confirmed Aspirin [[place] Aspirin] 81 mg PO DAILY 01/14/22 01/14/22 Atorvastatin Calcium [Lipitor] 80 mg PO HS 01/14/22 01/14/22 Docusate Sodium 250Mg Capsule 250 mg PO BID PRN 01/14/22 01/14/22 [Colace 250Mg Capsule] Doxycycline Hyclate 100 mg PO BID #20 tab.sr 01/14/22 Ferrous Sulfate 325 mg PO DAILY 01/14/22 01/14/22 Finasteride [Proscar] 5 mg PO DAILY 01/14/22 01/14/22 HYDROcod/ACETAM 5/325 [Erin 5/325] 1 - 2 tablet PO Q6H PRN 01/14/22 01/14/22 Lisinopril [Zestril] 10 mg PO DAILY 01/14/22 01/14/22 Metoprolol Succinate [Toprol Xl] 25 mg PO BID 01/14/22 01/14/22 Nitroglycerin [Nitrostat] 0.4 mg SL [id number] PRN 01/14/22 01/14/22 Oxybutynin [Ditropan] 5 mg PO TID PRN 01/14/22 01/14/22 Tamsulosin [Flomax] 0.4 mg PO DAILY 01/14/22 01/14/22 - Allergies Allergies/Adverse Reactions: Allergies Allergy/AdvReac Type Severity Reaction Status Date / Time No Known Drug Allergies Allergy Verified 01/14/22 11:25 - Social History Does the pt smoke?: Yes Smoking Status: Current every day smoker Does the pt drink ETOH?: Yes Does the pt have substance abuse?: No - Immunizations Immunizations are current?: Yes - POLST Patient has POLST: No PD ED PE NORMAL - General General: Alert and oriented X 3 - HEENT HEENT: Atraumatic - Neck Neck: Supple, no meningeal sign - Cardiac Cardiac: RRR, No gallop - Respiratory Respiratory: No respiratory distress, Clear bilaterally - Abdomen Abdomen: Normal bowel sounds - Back Back: Other (Left-sided nephrectomy tube with grossly bloody output) - Neuro Neuro: Alert and oriented X 3, letterpress setter 2-12 intact, No motor deficit, No sensory deficit, Normal speech Results - Vitals Vitals: Vital Signs - 24 hr 01/14/22 01/14/22 01/14/22 11:19 14:06 16:00 Temperature 36.5 C 36.8 C Heart Rate 108 H 103 H 95 Respiratory 16 18 16 Rate Blood Pressure 138/81 H 136/96 H 149/94 H O2 Saturation 98 100 100 01/14/22 17:00 Temperature 36.7 C Heart Rate 99 Respiratory 18 Rate Blood Pressure 141/92 H O2 Saturation 99 Oxygen O2 Source Room air - Labs Labs: Laboratory Tests 01/14/22 01/14/22 01/14/22 11:37 11:37 12:31 WBC 18.6 H RBC 5.06 Hgb 15.4 Hct 45.3 MCV 89.5 MCH 30.4 MCHC 34.0 RDW 12.4 Plt Count 221 MPV 9.9 Neut # (Auto) 15.3 H Lymph # (Auto) 1.5 Brewster # (Auto) 1.4 H Eos # (Auto) 0.1 Baso # (Auto) 0.1 Absolute Nucleated RBC 0.00 Nucleated RBC % 0.0 APTT 30.2 Sodium 137 Potassium 4.1 Chloride 105 Carbon Dioxide 21 Anion Gap 11.0 BUN 37 H Creatinine 1.9 H Estimated GFR (MDRD) 35 L Glucose 119 H Calcium 8.7 Total Bilirubin 1.0 AST 12 ALT 13 Alkaline Phosphatase 91 Total Protein 7.5 Albumin 4.0 Globulin 3.5 Albumin/Globulin Ratio 1.1 Lipase 32 Urine Color Urine Clarity Urine pH Ur Specific Floyd Urine Protein Urine Glucose (UA) Urine Ketones Urine Occult Blood Urine Nitrite Urine Bilirubin Urine Urobilinogen Ur Leukocyte Esterase Urine RBC Urine WBC Ur Squamous Epith Cells Urine Bacteria Ur Microscopic Review Urine Culture Comments 01/14/22 14:04 WBC RBC Hgb Hct MCV MCH MCHC RDW Plt Count MPV Neut # (Auto) Lymph # (Auto) Brewster # (Auto) Eos # (Auto) Baso # (Auto) Absolute Nucleated RBC Nucleated RBC % APTT Sodium Potassium Chloride Carbon Dioxide Anion Gap BUN Creatinine Estimated GFR (MDRD) Glucose Calcium Total Bilirubin AST ALT Alkaline Phosphatase Total Protein Albumin Globulin Albumin/Globulin Ratio Lipase Urine Color RED/BLOODY Urine Clarity TURBID Urine pH Ur Specific Floyd Urine Protein Urine Glucose (UA) Urine Ketones Urine Occult Blood LARGE H Urine Nitrite Urine Bilirubin COLOR INTERFERENCE Urine Urobilinogen Ur Leukocyte Esterase MODERATE H Urine RBC TNTC H Urine WBC 11-25 H Ur Squamous Epith Cells NONE SEEN Urine Bacteria Rare Ur Microscopic Review INDICATED Urine Culture Comments INDICATED PD MEDICAL DECISION MAKING - ED course Complexity details: reviewed old records, reviewed results, d/w patient, d/w risk management consultant ED course: Patient is a 71-year-old male presenting to the emergency department with worsening left-sided flank pain and bloody output to a recently placed nephrostomy tube as well as some blood-tinged urine at home. Patient underwent nephrostomy tube and stent placement 01/01 at [facility] as well as transurethral resection of bladder tumors. Afebrile, hemodynamically stable on arrival to the emergency department. Given IV hydration and medication for pain control. Comprehensive labs obtained demonstrated a leukocytosis with bandemia as well as a stable chronic anemia. Additionally patient was noted to have a creatinine of 1.9. Most recent baseline from a few days ago was 1.45. CT imaging demonstrated Appropriately positioned nephrostomy tube, left-sided stent as well as improved hydronephrosis on the left and mild hydronephrosis on the right with fat stranding at the kidneys bilaterally as well as indications of cystitis and blood in the bladder. I consulted with Dr. La Hadley at [facility].All findings discussed. In consultation with Dr. Hadley will initiate oral antibiotics. Patient has prescription of pain Remaining from his previous hospitalization. Will discharge at this time for follow-up with urology. Follow-up appointment scheduled for 01/16. Patient given clear return precautions and follow-up instructions prior to discharge. - Consults Consults: Consulted (name) (Dr [facility]) Departure - Departure Disposition: 01 Home, Self Care Clinical Impression: Hematuria, Bladder cancer, Acute lower UTI, Leukocytosis Condition: Fair Follow-Up: LONA HADLEY MD [Physician No Access] - Prescriptions: Doxycycline Hyclate 100 mg PO BID #20 tab.sr Comments: Thank you for allowing us to care for you today at [facility]. In the emergency department today your evaluated for any possible life threatening injury or illness. You do have some indications of infection in your blood work and urine. I discussed your case with La Hadley, urology at [facility]. Would like you to begin a course of oral antibiotics. I had like you to fill the prescription for pain medication that was provided for you by [facility]. It is important that yo u drink plenty of fluids over the course the next few days. You have a follow- up appointment with Dr. Hadley in 2 days. Please keep this appointment. If it anytime you develop any new or worsening symptoms please not hesitate to return.
[2022-01-14] MEDS ORDERED: HYDROmorphone 0.5 MG/0.5 ML SYRINGE IM STA (12:18)
[2022-01-14] MEDS ORDERED: ONDANSETRON 4 MG/2 ML VIAL IVP STA (12:18)
[2022-01-14] MEDS ORDERED: HYDROmorphone 0.5 MG/0.5 ML SYRINGE IVP STA (12:21)
[2022-01-14] MEDS ORDERED: HYDROmorphone 1 MG/ML CARPUJECT IVP STA (13:46)
--- NOTE | 2022-01-14 13:59 | CT Report ---
PROCEDURE: Abdomen/Pelvis WO INDICATIONS: pain, hematuria, bleeding from neph tube plcd 01/01 TECHNIQUE: Noncontrast 5 mm thick sections acquired from the diaphragms to the symphysis. 5 mm coronal and sagi ttal reformats were then performed. For radiation dose reduction, the following was used: automated exposure control, adjustment of mA and/or kV according to patient size. COMPARISON: 11/27/2021, 12/01/2020. FINDINGS: Image quality: Excellent. ABDOMEN: Lung bases: Dependent atelectasis in posterior aspect of bilateral lung bases are seen. Heart size is enlarged, no pericardial effusion. Solid organs: Liver and spleen are normal in size. Well-circumscribed hypodensity in inferior right hepatic lobe adjacent to gallbladder fossa is again seen unchanged from prior studies and is consiste nt with a small hepatic cyst. Gallbladder it is within normal limits. Pancreas is normal in contou rs. No adrenal nodules. There is interval placement of left-sided percutaneous nephrostomy tube and left-sided ureteral stent . There is mild residual left-sided hydronephrosis and hydroureter with significant left periureteral fat stranding. There is interval development of mild right-sided hydronephrosis with moderate right perinephric fat stranding although no obstructing renal stone or ureteral stone is seen. Peritoneum and bowel: Unenhanced bowel loops demonstrate normal wall thickness and caliber. No free fluid or air. Appendix is visualized and is within normal limits. Postsurgical changes are noted in mid to distal sigmoid colon with intact surgical anastomosis. Nodes and vessels: No retroperitoneal or mesenteric adenopathy by size criteria. Aorta and inferior vena cava are normal in caliber. Miscellaneous: No ventral hernias. PELVIS: Genitourinary: Urinary bladder is distended with diffuse bladder wall thickening and hyperdense mater ial within bladder lumen suggestive of blood clots. Mildly enlarged prostate gland with mild mass eff ect on floor of urinary bladder is seen. Miscellaneous: No inguinal hernias or adenopathy. Bones: No suspicious bony lesions. No vertebral body compression fractures. IMPRESSION: 1. Hyperdense material within bladder lumen with diffuse bladder wall thickening suggestive of blood and blood clot within the bladder lumen and cystitis. Underlying bladder wall malignancy process jeffery ot be excluded. 2. Interval placement of left-sided percutaneous nephrostomy tube and left-sided ureteral stent with significant decrease in extent of left-sided hydronephrosis and hydroureter compared to previous stud y. Mild residual left-sided hydronephrosis or hydroureter with significant left perinephric fat stran ding. 3. Interval development of mild right-sided hydronephrosis and mild to moderate right perinephric fat stranding. Right ureter is normal in size. No gross obstructing stone is identified. 4. Bibasilar dependent atelectasis. Cardiomegaly. 5. Stable appearing hypodensity in inferior right hepatic lobe likely represent hepatic cyst. 6. No bowel obstruction or abnormal bowel wall thickening. No free fluid of free air. Normal appendix . Reviewed by: Johnny Morales MD on 01/14/2022 1:57 PM PST Approved by: Johnny Morales MD on 01/14/2022 1:57 PM PST Station ID: [id number]
[2022-01-14 14:22] LABS: LEUKOCYTE ESTERASE, URINE MODERATE (NEGATIVE); OCCULT BLOOD,URINE LARGE (NEGATIVE)
[2022-01-14 14:27] LABS: CLARITY,URINE TURBID (CLEAR)
[2022-01-14 14:29] LABS: BILIRUBIN,URINE COLOR INTERFERENCE (NEGATIVE)
[2022-01-14 14:31] LABS: BACTERIA,URINE Rare /HPF (None Seen); RBC,URINE TNTC /HPF (0-5); SQUAMOUS EPITHELIAL CELL,UR NONE SEEN (<= Few)
[2022-01-14] MEDS ORDERED: cefTRIAXone 1 GM in SODIUM CHLORIDE 0.9% MINIBAG 100 ML IV STA (14:43)
[2022-01-14 17:16] VITALS: BP 141/92
== END 2022-01-14 17:35 | disposition home or self-care (01) ==
LOC: ED 11:07
DX: T83.83XA Hemorrhage due to genitourinary prosthetic devices, implants and grafts, initial encounter (principal); Y83.9 Surgical procedure, unspecified as the cause of abnormal reaction of the patient, or of later complication, without mention of misadventure at the time of the procedure; I10 Essential (primary) hypertension; F17.200 Nicotine dependence, unspecified, uncomplicated; Z79.82 Long term (current) use of aspirin; D49.4 Neoplasm of unspecified behavior of bladder; N39.0 Urinary tract infection, site not specified; D72.829 Elevated white blood cell count, unspecified
CPT/HCPCS: 36415; 74176; 80053; 81001; 83690; 85025; 85730; 87040; 87086; 96365; 96375; 96376; 99283; 99284; J1170; 81003

== ENCOUNTER 2022-01-19 10:33 | Emergency (ER) | payer MEDICARE ==
--- NOTE | 2022-01-19 12:18 | ED Physician Documentation ---
PD HPI ABD PAIN - Stated complaint Stated Complaint: DRAIN REPLACEMENT - Chief complaint Chief Complaint: Abd Pain - History obtained from History obtained from: Patient - Additional information Additional information: He has bladder cancer, left-sided nephrostomy that is 10 days old. His dog knocked it out today. He was not given any advice on what to do if this happened and just came to the closest hospital. He does not know who his urologist is. He is in no pain. This would have happened around 10 AM, may be slightly earlier. Review of Systems Ten Systems: 10 systems reviewed and negative Constitutional: reports: Reviewed and negative Ears: reports: Reviewed and negative Nose: reports: Reviewed and negative Throat: reports: Reviewed and negative Cardiac: reports: Reviewed and negative PD PAST MEDICAL HISTORY - Past Medical History Past Medical History: Yes Cardiovascular: Hypertension Respiratory: None Neuro: None Endocrine/Autoimmune: None GI: Other : Other HEENT: None Psych: None Musculoskeletal: None Derm: None Other Past Medical History: bladder cancer - Past Surgical History Past Surgical History: Yes General: Bowel surgery Ortho: Other Cardiovascular: Coronary stent - Present Medications Home Medications: Ambulatory Orders Medication Instructions Recorded Confirmed Aspirin [[place] Aspirin] 81 mg PO DAILY 01/14/22 01/14/22 Atorvastatin Calcium [Lipitor] 80 mg PO HS 01/14/22 01/14/22 Docusate Sodium 250Mg Capsule 250 mg PO BID PRN 01/14/22 01/14/22 [Colace 250Mg Capsule] Doxycycline Hyclate 100 mg PO BID #20 tab.sr 01/14/22 Ferrous Sulfate 325 mg PO DAILY 01/14/22 01/14/22 Finasteride [Proscar] 5 mg PO DAILY 01/14/22 01/14/22 HYDROcod/ACETAM 5/325 [[place] 5/325] 1 - 2 tablet PO Q6H PRN 01/14/22 01/14/22 Lisinopril [Zestril] 10 mg PO DAILY 01/14/22 01/14/22 Metoprolol Succinate [Toprol Xl] 25 mg PO BID 01/14/22 01/14/22 Nitroglycerin [Nitrostat] 0.4 mg SL [id number] PRN 01/14/22 01/14/22 Oxybutynin [Ditropan] 5 mg PO TID PRN 01/14/22 01/14/22 Tamsulosin [Flomax] 0.4 mg PO DAILY 01/14/22 01/14/22 - Allergies Allergies/Adverse Reactions: Allergies Allergy/AdvReac Type Severity Reaction Status Date / Time No Known Drug Allergies Allergy Verified 01/19/22 10:41 - Social History Does the pt smoke?: Yes Smoking Status: Current every day smoker Does the pt drink ETOH?: Yes Does the pt have substance abuse?: No - Immunizations Immunizations are current?: Yes - POLST Patient has POLST: No PD ED PE NORMAL - Vitals Vital signs reviewed: Yes - General General: Alert and oriented X 3, No acute distress - HEENT HEENT: PERRL, EOMI - Neck Neck: Supple, no meningeal sign, No bony TTP - Cardiac Cardiac: RRR, No murmur - Respiratory Respiratory: No respiratory distress, Clear bilaterally - Abdomen Abdomen: Non tender, Other (Small wound left flank consistent with removed nephrostomy) - Back Back: No CVA TTP, No spinal TTP - Derm Derm: Normal color, Warm and dry - Extremities Extremities: No edema, No calf tenderness / cord - Neuro Neuro: Alert and oriented X 3, Normal speech Results - Vitals Vitals: Vital Signs - 24 hr 01/19/22 01/19/22 10:41 11:08 Temperature 36.8 C Heart Rate 102 H 85 Respiratory 18 Rate Blood Pressure 147/87 H O2 Saturation 97 Oxygen O2 Source Room air PD MEDICAL DECISION MAKING - ED course ED course: 71-year-old gentleman presents with a displaced nephrostomy tube. I spoke with the on-call urologist at [facility], Dr. Angeles (question spelling), and he reviewed their chart notes and feels this can be delayed until tomorrow. He will have the office contact the patient in the morning. Departure - Departure Disposition: 01 Home, Self Care Clinical Impression: Nephrostomy tube displaced Condition: Good Record reviewed to determine appropriate education?: Yes Comments: I spoke with the on-call urologist today. He feels that this can be put off until tomorrow. He plans to have their office call you tomorrow morning to make arrangements and timing. If you do not hear from them by 10 AM you should call them, the phone number is [phone]. If you develop severe pain I recommend returning to the emergency department but you may consider going directly to [facility] where they have interventional radiology. You may always return here though.
[2022-01-19 12:52] VITALS: BP 145/86
== END 2022-01-19 12:50 | disposition home or self-care (01) ==
LOC: ED 10:33
DX: T83.022A Displacement of nephrostomy catheter, initial encounter (principal); F17.200 Nicotine dependence, unspecified, uncomplicated; Z20.822 Contact with and (suspected) exposure to COVID-19
CPT/HCPCS: 99282; 99283

== ENCOUNTER 2022-01-31 18:37 | Emergency (ER) | payer MEDICARE ==
[2022-01-31 18:55] VITALS: BP 145/99
--- NOTE | 2022-01-31 19:08 | ED Physician Documentation ---
History of Present Illness - Stated complaint Stated Complaint: LEAKING DRAINAGE - Additonal information Additional information: 71-year-old male presents emergency department to have the tubing connected to his left nephrostomy tube reattached. He was seen at [facility] urology earlier today and since being seen for tubing dysfunction it has continued to not drain and become disconnected just above the T port. Patient is angry and frustrated. He understands we have no urology services here he understands that we do not have the appropriate tubing but is resistant to going to [facility] where the tube was placed as he feels it is too long to drive. Review of Systems Constitutional: denies: Fever, Chills Cardiac: reports: Reviewed and negative Respiratory: reports: Reviewed and negative GI: reports: Reviewed and negative : reports: Reviewed and negative Skin: reports: Other (Left nephrostomy tube.) Musculoskeletal: reports: Reviewed and negative PD PAST MEDICAL HISTORY - Past Medical History Cardiovascular: Hypertension Respiratory: None Neuro: None Endocrine/Autoimmune: None GI: Other : Other HEENT: None Psych: None Musculoskeletal: None Derm: None - Past Surgical History Past Surgical History: Yes General: Bowel surgery Ortho: Other Cardiovascular: Coronary stent - Present Medications Home Medications: Ambulatory Orders Medication Instructions Recorded Confirmed Aspirin [[place] Aspirin] 81 mg PO DAILY 01/14/22 01/31/22 Atorvastatin Calcium [Lipitor] 80 mg PO HS 01/14/22 01/31/22 Docusate Sodium 250Mg Capsule 250 mg PO BID PRN 01/14/22 01/31/22 [Colace 250Mg Capsule] Doxycycline Hyclate 100 mg PO BID #20 tab.sr 01/14/22 01/31/22 Ferrous Sulfate 325 mg PO DAILY 01/14/22 01/31/22 Finasteride [Proscar] 5 mg PO DAILY 01/14/22 01/31/22 HYDROcod/ACETAM 5/325 [R[place]us 5/325] 1 - 2 tablet PO Q6H PRN 01/14/22 01/31/22 Lisinopril [Zestril] 10 mg PO DAILY 01/14/22 01/31/22 Metoprolol Succinate [Toprol Xl] 25 mg PO BID 01/14/22 01/31/22 Nitroglycerin [Nitrostat] 0.4 mg SL [id number] PRN 01/14/22 01/31/22 Oxybutynin [Ditropan] 5 mg PO TID PRN 01/14/22 01/31/22 Tamsulosin [Flomax] 0.4 mg PO DAILY 01/14/22 01/31/22 - Allergies Allergies/Adverse Reactions: Allergies Allergy/AdvReac Type Severity Reaction Status Date / Time No Known Drug Allergies Allergy Verified 01/31/22 18:55 - Social History Does the pt smoke?: Yes Smoking Status: Current every day smoker Does the pt drink ETOH?: Yes Does the pt have substance abuse?: No - Immunizations Immunizations are current?: Yes - POLST Patient has POLST: No PD ED PE EXPANDED - Back Back: Other (Left nephrostomy tube seen exiting the mid back. Drainage is bloody. The TPiece has become disconnected from the tube itself.) Results - Vitals Vitals: Vital Signs - 24 hr 01/31/22 18:49 Temperature 37 C Heart Rate 104 H Respiratory 16 Rate Blood Pressure 145/99 H O2 Saturation 98 Oxygen O2 Source Room air PD MEDICAL DECISION MAKING - ED course Complexity details: d/w patient ED course: 71-year-old male presents the emergency department for evaluation of dysfunction of his left nephrostomy tube where the T-piece has become disconnected from the tube itself. I was able to reinsert this with ease however it appears to want to slip out. I am unable to keep keep it in place. I did temporarily tape around it with gauze. Because we do not have appropriate tubing or urology services here I have advised the patient that he should go to [place] or [facility] where they do have the services. He understands and leaves the emergency department without receiving discharge instructions. Departure - Departure Disposition: Home, Self Care Clinical Impression: Malfunction of nephrostomy tube Condition: Stable Record reviewed to determine appropriate education?: Yes Comments: Stan we have reattached the tubing of your nephrostomy tube. However if it becomes apart again you will need to go to [facility] or [facility] where they do have urology services. Please discuss this ED case with your urologist as soon as possible.
== END 2022-01-31 19:13 | disposition home or self-care (01) ==
LOC: ED 18:37
DX: T83.022A Displacement of nephrostomy catheter, initial encounter (principal); Y84.6 Urinary catheterization as the cause of abnormal reaction of the patient, or of later complication, without mention of misadventure at the time of the procedure; Y73.8 Miscellaneous gastroenterology and urology devices associated with adverse incidents, not elsewhere classified; I10 Essential (primary) hypertension; F17.200 Nicotine dependence, unspecified, uncomplicated
CPT/HCPCS: 80053; 83690; 85025; 99281; 99283

== ENCOUNTER 2022-03-01 10:22 | Emergency (ER) | payer MEDICARE ==
--- NOTE | 2022-03-01 11:48 | ED Physician Documentation ---
PD HPI WOUND RECHECK - Stated complaint Stated Complaint: BANDAGE CHANGE - Chief complaint Chief Complaint: Wound - Histroy obtained from History obtained from: Patient - History of Present Illness Location: Back (patient had bladder cancer surgery and has nephrostomy tube left flank, with dressing around it that needs changing. THe patient cannot reach the area himself and did not have anyone at home to help. Here for dressing change. Also has a lot of pain and was RX oxybutinin, only small amount pain meds.) Timing - onset: Today Associated symptoms: Other (the nephrostomy tube is draining appropriately.). No: Fever, Redness Similar symptoms before: Has not had sx before Recently seen: Surgery (see above) Review of Systems Constitutional: denies: Fever, Chills Nose: denies: Rhinorrhea / runny nose, Congestion Throat: denies: Sore throat Respiratory: denies: Cough GI: reports: Abdominal Pain (in bladder area). denies: Nausea, Vomiting Musculoskeletal: reports: Back pain (in surgical area) PD PAST MEDICAL HISTORY - Past Medical History Cardiovascular: Hypertension Respiratory: None Neuro: None Endocrine/Autoimmune: None GI: Other : Other (bladder cancer with recent surgery) HEENT: None Psych: None Musculoskeletal: None Derm: None - Past Surgical History Past Surgical History: Yes General: Bowel surgery Ortho: Other Cardiovascular: Coronary stent - Present Medications Home Medications: Ambulatory Orders Medication Instructions Recorded Confirmed Aspirin [[place] Aspirin] 81 mg PO DAILY 01/14/22 01/31/22 Atorvastatin Calcium [Lipitor] 80 mg PO HS 01/14/22 01/31/22 Docusate Sodium 250Mg Capsule 250 mg PO BID PRN 01/14/22 01/31/22 [Colace 250Mg Capsule] Doxycycline Hyclate 100 mg PO BID #20 tab.sr 01/14/22 01/31/22 Ferrous Sulfate 325 mg PO DAILY 01/14/22 01/31/22 Finasteride [Proscar] 5 mg PO DAILY 01/14/22 01/31/22 HYDROcod/ACETAM 5/325 [[place]amy 5/325] 1 - 2 tablet PO Q6H PRN 01/14/22 01/31/22 Lisinopril [Zestril] 10 mg PO DAILY 01/14/22 01/31/22 Metoprolol Succinate [Toprol Xl] 25 mg PO BID 01/14/22 01/31/22 Nitroglycerin [Nitrostat] 0.4 mg SL [id number] PRN 01/14/22 01/31/22 Oxybutynin [Ditropan] 5 mg PO TID PRN 01/14/22 01/31/22 Tamsulosin [Flomax] 0.4 mg PO DAILY 01/14/22 01/31/22 oxyCODONE [Roxicodone] 5 mg PO Q6H PRN #18 tablet 03/01/22 - Allergies Allergies/Adverse Reactions: Allergies Allergy/AdvReac Type Severity Reaction Status Date / Time No Known Drug Allergies Allergy Verified 03/01/22 10:27 - Social History Does the pt smoke?: Yes Smoking Status: Current every day smoker Does the pt drink ETOH?: Yes Does the pt have substance abuse?: No - Immunizations Immunizations are current?: Yes - POLST Patient has POLST: No PD ED PE NORMAL - Vitals Vital signs reviewed: Yes - General General: Alert and oriented X 3, No acute distress, Well developed/nourished - Abdomen Abdomen: Normal bowel sounds, Soft, Non distended, Other (some tenderness in lower abd. No guarding nor percussion tender. ) - Back Back: Other (left flank with nephrostomy tube coming out. SUrgical site with dressing on and removed easily. No signs of infection.) Results - Vitals Vitals: Vital Signs - 24 hr 03/01/22 03/01/22 10:27 12:33 Temperature 37.0 C 36.8 C Heart Rate 99 94 Respiratory 18 16 Rate Blood Pressure 148/89 H 140/78 H O2 Saturation 99 99 Oxygen O2 Source Room air PD MEDICAL DECISION MAKING - ED course Complexity details: reviewed old records ([facility] Showing only small amount scripts pain meds in past several months. Seems reasonable to RX more s/p surgery. ), considered differential (needing dressing change and requesting small amount pain meds until f/u with surgeon this coming week. ), d/w patient Departure - Departure Disposition: 01 Home, Self Care Clinical Impression: Dressing change or removal, surgical wound, Flank pain Condition: Stable Record reviewed to determine appropriate education?: Yes Prescriptions: oxyCODONE [Roxicodone] 5 mg PO Q6H PRN #18 tablet PRN Reason: Pain Comments: Follow-up with your prior primary care and specialist as planned. I sent a prescription for some oxycodone down to [facility] in [place]. Continue your other usual medicines. I am prescribing a short course of narcotic pain medication for you. These are potentially dangerous and addictive medications that should be used carefully. These medications may constipate you. Take an npqf-rat-nnbpgas stool softener s uch as docusate twice daily with plenty of water while taking these medications. If you go 24 hours without a bowel movement, take qslf-sjg-qhtqzaa MiraLAX, per package instructions. Do not drink or drive while taking these medications. If you received narcotic or sedating medications while in the emergency department do not drive for 24 hours. Store this medication in a safe, secure place and out of reach of children. It is a violation of federal law to give or sell this medication to another person or to use in a manner other than prescribed. The ED will not refill narcotic prescriptions, including prescriptions lost or stolen. You can dispose of unwanted medications at the [facility] office or at several pharmacies such as [email or web address]. Discharge Date/Time: 03/01/22 12:33
[2022-03-01] MEDS ORDERED: oxyCODONE 5 MG TABLET PO STA (11:56)
[2022-03-01] MEDS ORDERED: MUPIROCIN 2% OINT 1 GM TOP STA (12:26)
[2022-03-01 12:34] VITALS: BP 140/78
== END 2022-03-01 12:33 | disposition home or self-care (01) ==
LOC: ED 10:22
DX: Z48.01 Encounter for change or removal of surgical wound dressing (principal); F17.200 Nicotine dependence, unspecified, uncomplicated
CPT/HCPCS: 99282; A9270

== ENCOUNTER 2022-03-10 14:03 | Emergency (ER) | payer MEDICARE ==
--- NOTE | 2022-03-10 15:23 | ED Physician Documentation ---
PD HPI WOUND RECHECK - Stated complaint Stated Complaint: DRESSING CHANGE - Chief complaint Chief Complaint: Wound - Histroy obtained from History obtained from: Patient - Additional information Additional information: 71-year-old gentleman with stage III or IV bladder cancer presents requesting pain management and a replacement of the dressing over his left-sided nephrostomy. Review of Systems Constitutional: reports: Reviewed and negative Nose: reports: Reviewed and negative Throat: reports: Reviewed and negative Cardiac: reports: Reviewed and negative Respiratory: reports: Reviewed and negative PD PAST MEDICAL HISTORY - Past Medical History Cardiovascular: Hypertension Respiratory: None Neuro: None Endocrine/Autoimmune: None GI: Other : Other (bladder cancer with recent surgery) HEENT: None Psych: None Musculoskeletal: None Derm: None - Past Surgical History Past Surgical History: Yes General: Bowel surgery Ortho: Other Cardiovascular: Coronary stent - Present Medications Home Medications: Ambulatory Orders Medication Instructions Recorded Confirmed Aspirin [[place] Aspirin] 81 mg PO DAILY 01/14/22 01/31/22 Atorvastatin Calcium [Lipitor] 80 mg PO HS 01/14/22 01/31/22 Docusate Sodium 250Mg Capsule 250 mg PO BID PRN 01/14/22 01/31/22 [Colace 250Mg Capsule] Doxycycline Hyclate 100 mg PO BID #20 tab.sr 01/14/22 01/31/22 Ferrous Sulfate 325 mg PO DAILY 01/14/22 01/31/22 Finasteride [Proscar] 5 mg PO DAILY 01/14/22 01/31/22 HYDROcod/ACETAM 5/325 [Mobile 5/325] 1 - 2 tablet PO Q6H PRN 01/14/22 01/31/22 Lisinopril [Zestril] 10 mg PO DAILY 01/14/22 01/31/22 Metoprolol Succinate [Toprol Xl] 25 mg PO BID 01/14/22 01/31/22 Nitroglycerin [Nitrostat] 0.4 mg SL [id number] PRN 01/14/22 01/31/22 Oxybutynin [Ditropan] 5 mg PO TID PRN 01/14/22 01/31/22 Tamsulosin [Flomax] 0.4 mg PO DAILY 01/14/22 01/31/22 oxyCODONE [Roxicodone] 5 mg PO Q6H PRN #18 tablet 03/01/22 Oxycodone HCl/Acetaminophen 1 - 2 each PO Q6H PRN #20 tablet 03/10/22 [Percocet 5-325 mg Tablet] - Allergies Allergies/Adverse Reactions: Allergies Allergy/AdvReac Type Severity Reaction Status Date / Time No Known Drug Allergies Allergy Verified 03/10/22 14:23 - Social History Does the pt smoke?: Yes Smoking Status: Current every day smoker Does the pt drink ETOH?: Yes Does the pt have substance abuse?: No - Immunizations Immunizations are current?: Yes - POLST Patient has POLST: No PD ED PE NORMAL - Vitals Vital signs reviewed: Yes - General General: Alert and oriented X 3, No acute distress - Abdomen Abdomen: Normal bowel sounds, Soft, Non tender - Back Back: Other (There is a dressing in place over the left-sided nephrostomy, it is a specialized dressing and he brought it a spare with him and this was replaced without issue.) - Neuro Neuro: Alert and oriented X 3, Normal speech Results - Vitals Vitals: Vital Signs - 24 hr 03/10/22 14:19 Temperature 36 C L Heart Rate 118 H Respiratory 20 Rate Blood Pressure 151/90 H O2 Saturation 100 Oxygen O2 Source Room air Departure - Departure Disposition: 01 Home, Self Care Clinical Impression: Bladder cancer, Dressing change or removal, surgical wound Condition: Good Record reviewed to determine appropriate education?: Yes Prescriptions: Oxycodone HCl/Acetaminophen [Percocet 5-325 mg Tablet] 1 - 2 each PO Q6H PRN #20 tablet PRN Reason: pain Comments: I sent your prescription electronically to [facility] in [place]. Follow-up with your urologist tomorrow as scheduled. Return for new or worsening symptoms. I am prescribing a short course of narcotic pain medication for you. These are potentially dangerous and addictive medications that should be used carefully. These medications may constipate you. Take an fika-pxt-mdthhql stool softener (docusate) twice daily with plenty of water while taking these medications. If you go 24 hours without a bowel movement, take xwpq-ezn-yajclnx miralax, per package instructions. Do not drink or drive while taking these medications. If you received narcotic or sedating medications while in the emergency department, do not drive for 24 hours. Store this medication in a safe, secure place and out of reach of children. It is a violation of federal law to give or sell this medication to another person or to use in a manner other than prescribed. The ED will not refill narcotic prescriptions, including prescriptions lost or stolen. To dispose of unwanted medications: 1. [facility] at [address] in [place] has a medication drop box. They accept prescription medications (in pill form) Thursday through Thursday 9:00 a.m. to 5:00 p.m. 2. The [facility] accepts prescription medications (in pill form only) for disposal year round. Call for more information. 3. Contact the [facility] for the next [facility] sponsored prescription drug collection event. , [phone], or [phone]; Note that many narcotic pain relievers also contain Tylenol/acetaminophen. Please ensure that your total dose of acetaminophen from all sources does not exceed 3 g (3000 mg) per day.
[2022-03-10 15:52] VITALS: BP 130/87
== END 2022-03-10 15:40 | disposition home or self-care (01) ==
LOC: ED 14:03
DX: Z48.01 Encounter for change or removal of surgical wound dressing (principal); C67.9 Malignant neoplasm of bladder, unspecified; I10 Essential (primary) hypertension; F17.200 Nicotine dependence, unspecified, uncomplicated
CPT/HCPCS: 99281; 99282

== ENCOUNTER 2022-08-14 12:52 | Emergency (ER) | payer MEDICARE ==
[2022-08-14 13:10] VITALS: BP 135/79
--- NOTE | 2022-08-14 14:10 | ED Physician Documentation ---
History of Present Illness - Stated complaint Stated Complaint: MALE - Chief complaint Chief Complaint: General - Additonal information Additional information: 72-year-old male presents emergency department for treatment of his broken neph rostomy tube. He does have a history of renal carcinoma has bilateral nephrostomy tubes in place. The tubing broke this morning and it has been draining into a towel since. He lives in [place] and does not want to drive to [place] to have it fixed/replaced Review of Systems Constitutional: reports: Reviewed and negative Throat: reports: Reviewed and negative Respiratory: reports: Reviewed and negative : reports: Reviewed and negative Skin: reports: Reviewed and negative PD PAST MEDICAL HISTORY - Past Medical History Cardiovascular: Congestive heart failure, Hypertension Respiratory: None Neuro: None Endocrine/Autoimmune: None GI: Other : Benign prostate hypertrophy, Other HEENT: None Psych: Depression, Anxiety Musculoskeletal: None Derm: None - Past Surgical History Past Surgical History: Yes General: Bowel surgery Ortho: Other Cardiovascular: Coronary stent - Present Medications Home Medications: Ambulatory Orders Medication Instructions Recorded Confirmed Aspirin [[place] Aspirin] 81 mg PO DAILY 01/14/22 04/07/22 Atorvastatin Calcium [Lipitor] 80 mg PO HS 01/14/22 04/28/22 Docusate Sodium 250Mg Capsule 250 mg PO BID PRN 01/14/22 04/07/22 [Colace 250Mg Capsule] Ferrous Sulfate 325 mg PO DAILY 01/14/22 04/07/22 Finasteride [Proscar] 5 mg PO DAILY 01/14/22 04/28/22 Lisinopril [Zestril] 10 mg PO DAILY 01/14/22 04/07/22 Metoprolol Succinate [Toprol Xl] 25 mg PO BID 01/14/22 04/07/22 Nitroglycerin [Nitrostat] 0.4 mg SL [id number] PRN 01/14/22 04/07/22 Oxybutynin [Ditropan] 5 mg PO TID PRN 01/14/22 04/07/22 Tamsulosin [Flomax] 0.4 mg PO DAILY 01/14/22 04/07/22 - Allergies Allergies/Adverse Reactions: Allergies Allergy/AdvReac Type Severity Reaction Status Date / Time No Known Drug Allergies Allergy Verified 08/14/22 13:10 - Social History Does the pt smoke?: Yes Smoking Status: Current every day smoker Does the pt drink ETOH?: Yes Does the pt have substance abuse?: No - Immunizations Immunizations are current?: Yes - POLST Patient has POLST: No PD ED PE EXPANDED - General General: Alert, Other (appears chronically ill) - Abdomen Abdomen: Other (Bilateral nephrostomy tubes in place. The left nephrostomy tube is cracked at the hub. The tubing is unable to be removed and replaced with a new three-way port.) Results - Vitals Vitals: Vital Signs - 24 hr 08/14/22 13:07 Temperature 36.4 C L Heart Rate 116 H Respiratory 14 Rate Blood Pressure 135/79 H O2 Saturation 98 Oxygen O2 Source Room air PD MEDICAL DECISION MAKING - ED course Complexity details: considered differential, d/w patient ED course: 72-year-old male presents emergency department hoping that we would be able to fix the broken nephrostomy tubing that is cracked. Unfortunately [facility] does not have the appropriate tubing or hubs and we are unable to fix this problem. These tubes were placed at [facility]. I did offer the patient transfer to an appropriate medical facility that would be able to fix this problem but given the lack of beds and outlying hospitals and the fact that the patient drove himself to the ER he is declining transport. He will elect to drive himself to [facility]. He has requested that we call schedule ER to let them know that he is coming which we will accommodate. Departure - Departure Disposition: 01 Home, Self Care Clinical Impression: Nephrostomy tube failure with subsequent urine leak Condition: Stable Record reviewed to determine appropriate education?: Yes Comments: Stan unfortunately we do not have the tubing here to fix your broken tube. [facility] but you have declined that. I encourage you to follow very closely with your commercial lines account executive or [facility] in order to have your tubing fixed as soon as possible.
== END 2022-08-14 14:15 | disposition home or self-care (01) ==
LOC: ED 12:52
DX: T83.032A Leakage of nephrostomy catheter, initial encounter (principal); Y73.8 Miscellaneous gastroenterology and urology devices associated with adverse incidents, not elsewhere classified; I10 Essential (primary) hypertension; F17.200 Nicotine dependence, unspecified, uncomplicated
CPT/HCPCS: 99281